=== PATIENT | male | born 1960 | race Caucasian/White ===

== ENCOUNTER 2019-11-20 10:56 | Emergency (ER) | payer BC, SELFPAY ==
[2019-11-20 10:57] VITALS: BP 159/100; PULSE 90; RESP 18; TEMP 36.4; O2SAT 96; BMI 31.6
--- NOTE | 2019-11-20 11:16 | EKG12_ITS ---
Test Reason : SYNCOPE Blood Pressure : / mmHG Vent. Rate : 069 BPM Atrial Rate : 069 BPM P-R Int : 142 ms QRS Dur : 094 ms QT Int : 376 ms P-R-T Axes : 054 068 061 degrees QTc Int : 402 ms Normal sinus rhythm Normal ECG Confirmed by LANCE GARCIA, AARON ([id number]), editor & co founder ROYAL MANN ([id number]) on 11/22/2019 9:15:31 AM Referred By: WAN Confirmed By:AARON LUCAS MD
--- NOTE | 2019-11-20 11:16 | RAD_ITS ---
STUDY: X-RAY CHEST REASON FOR EXAM: Male, 59 years old. Chest pain over past few days, worsening, a few episodes of passing out TECHNIQUE: Single AP portable view of the chest. COMPARISON: Comparison is made with prior study dated September 12, 2015. FINDINGS: EKG lead traversing. The lungs are clear and expanded. There is no demonstrated pleural abnormality. Normal size heart. Normal mediastinum and tim. Normal visualized pulmonary arteries. There is atherosclerotic tortuosity of the aortic arch and descending thoracic aorta. Normal visualized thoracic spine. Normal visualized ribs, clavicles, and shoulders. There is no demonstrated abnormality of the visualized soft tissue structures of the upper abdomen. RAD/Chest 1 View (Portable) IMPRESSION: No acute abnormality is seen. Electronically Signed: Kin Araiza, at 12:14 EDT , Service support ,
--- NOTE | 2019-11-20 11:41 | ED.DCSUM_ITS ---
- ER Visit Summary Date of Service: 11/20/19 Chief Complaint: Dizziness, syncope, and chest pain History of Present Illness: The patient is a 59 M who presents with dizziness, syncope, and chest pain that began yesterday. 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 Patient states he tried to stand up and his vision went blue and he fell to his knees. Patient states he has had intermittent chest pain that is sharp and squeezing. Patient states this is over the substernal area. Patient states that last for hours then resolves. Patient admits to some palpitations. Patient denies any nausea or vomiting. Patient denies any shortness of breath or cough. Physical Examination: Vital signs are stable except for a slightly elevated blood pressure of 159/100. Patient is afebrile. Patient is in no acute distr ess. Oral mucosa is pink and moist. Neck is supple. Trachea is midline. There is no JVD noted. Heart was regular rate and rhythm. Lungs are clear and equal bilaterally. Abdomen is soft. Bowel sounds are normal. There is no tenderness. There is no rebound or guarding noted. Skin is warm dry. Cranial nerves II through XII are intact. There are no focal motor or sensory deficits noted. Extremities are intact. There is no calf tenderness or edema. Test Results: EKG showed normal sinus rhythm with a rate of 69. There are no acute ST or T wave changes. CBC, comprehensive metabolic profile, lipase, PT with INR, and PTT were all within normal limits. Troponin was less than 0.015. D-dimer was slightly elevated at 0.54. Portable chest x-ray was obtained. Th ere is no acute cardiopulmonary process. CTA of the chest was obtained. There is no evidence of pulmonary embolism. This was interpreted by the radiologist and reviewed by myself. Orthostatic vital signs were within normal limits. Emergency Department Course and Treatment: Patient was advised of his findings. Patient is feeling better on reevaluation. Patient was advised that he is low risk for serious adverse event from his syncope according to the [place] syncope criteria. Patient was instructed to follow-up with his primary care physician in 3 to 5 days. Patient understood and was agreeable with the plan. All questions were answered. Disposition: Discharge home Impression: Syncope This note was generated with [employer] software. It may contain incorrect words, spelling, and punctuation that were not noted in review of the chart prior to signing ED Disposition - Plan for ED Patient: Disposition: Home or Assisted Living Diagnosis: Syncope Instructions: ED Near-Fainting Uncertain Cause Referrals: Kailash Dash MD [Primary Care Provider] - 3-5 Days
[2019-11-20 11:48] LABS: Absolute Lymphocyte Count 1.44 X10^3/uL (0.83-4.51); Absolute Neutrophil Count 5.7 X10^3/uL (2.0-7.7); Basophil# 0.04 X10^3/uL; Basophil% 0.5 % (0-1); Eosinophil# 0.02 X10^3/uL; Eosinophils% 0.3 % (0-5); Hematocrit 44.5 % (40-54); Hemoglobin 14.6 g/dL (13.0-16.5); Lymphocyte # 1.44 X10^3/ul (4.0); Lymphocyte % 18.3 % (19-41); Mean Corp Hgb Conc 32.8 g/dL (32-36); Mean Corpuscular Hgb 30.7 pg (27.0-32.0); Mean Corpuscular Volume 93.7 fL (80-94); Mean Platelet Vol. 10.1 fl (6.2-12.0); Monocyte% 8.9 % (0-10); NRBC Flagged by Analyzer 0 % (0-5); Neutrophil # 5.65 X10^3/uL (2.7-7.7); Neutrophil % 71.6 % (47-70); Platelet Count 176 K/mm3 (150-450); RBC Distribution Width CV 13.5 % (11.6-14.6); RBC Distribution Width SD 46.1 fl (35.1-43.9); Red Blood Count 4.75 M/mm3 (4.6-6.2); White Blood Count 7.9 K/mm3 (4.4-11.0)
[2019-11-20] MEDS: 0.9% Normal Saline 1,000 ML 1000 ML IV (11:48)
[2019-11-20 12:01] LABS: Prothrombin Time (Protime)PT. 12.9 SECONDS (11.7-14.9)
[2019-11-20 12:02] LABS: Partial Thromboplast Time 24.1 Seconds (24.1-36.2)
[2019-11-20 12:08] LABS: ALB/GLOB Ratio 1.2 RATIO (0.9-2.4); AST(SGOT) 17 U/L (15-37); Alanine Aminotransfer ALT/SGPT 26 U/L (16-61); Albumin, Serum 3.8 g/dL (3.2-5.0); Alkaline Phosphatase 87 U/L (45-117); Anion Gap 6 (5-15); BUN 15 mg/dL (7-18); Chloride 110 mmol/L (98-107); EST Glomerular Filtration Rate 82 mL/min (>60); Est Glom Filt Rate - Afr Amer 99 mL/min (>60); Estimated Creatinine Clearance 83.14 ml/min; Globulin 3.3 g/dL (2.2-4.2); Glucose 116 mg/dL (74-106); Lipase 195 U/L (73-393); Potassium 3.8 mmol/L (3.5-5.1); Protein, Total 7.1 g/dL (6.4-8.2); Sodium Level 141 mmol/L (136-145)
[2019-11-20 12:11] LABS: D-Dimer Quantitative (DVT/PE) 0.54 FEU/ug/m (0.27-0.49)
[2019-11-20 12:19] VITALS: BP 153/97; BP 154/103; BP 166/100; PULSE 68; PULSE 87; PULSE 88
--- NOTE | 2019-11-20 12:25 | CT_ITS ---
STUDY: CTA CHEST REASON FOR EXAM: Male, 59 years old. Elevated D-dimer, chest pain, dizzy, syncope. Hx hypertension. RADIATION DOSAGE (If Supplied By Facility): CTDIvol = ( 12.37 ) mGy, DLP = ( 534.59 ) mGycm TECHNIQUE: The examination was performed with the intravenous administration of 100mL Isovue 370. Post-processing of the angiographic images was performed, with multiplanar reformation and 3D reconstruction. Individualized dose optimization techniques were used for this CT. COMPARISON: None. FINDINGS: Normal enhancement of the main pulmonary artery and right and left pulmonary arteries. Normal enhancement of the bilateral peripheral pulmonary arteries. There is no demonstrated pulmonary embolism. Normal thoracic aorta and visualized great vessels. There is no demonstrated aortic dissection. Normal heart and pericardium. Normal mediastinum. Normal hilar regions. Normal visualized trachea and bronchi. The lungs are well expanded. Normal pulmonary parenchyma. Normal pleura. Normal chest wall structures. Normal osseous structures. There are 2 tiny nonobstructive calculi in the upper pole calyx of the left kidney. CT/CTA Chest W/WO Contrast IMPRESSION: Normal CTA chest examination, without a demonstrated pulmonary embolism or arterial dissection. Electronically Signed: Kin Araiza, at 13:04 EDT , Service support ,
[2019-11-20 14:19] VITALS: BP 149/102; PULSE 64; RESP 18; O2SAT 95
== END 2019-11-20 14:28 | disposition home or self-care (01) ==
PROVIDERS: Emergency Provider Emergency Medicine; PCP Family Medicine
DX: R55 Syncope and collapse (principal); I10 Essential (primary) hypertension; E78.00 Pure hypercholesterolemia, unspecified; F41.9 Anxiety disorder, unspecified; Z79.899 Other long term (current) drug therapy
CPT/HCPCS: 71045; 71275; 80053; 83690; 84484; 85025; 85379; 85610; 85730; 93005; 96360; 99284; Q9967

== ENCOUNTER → 2019-12-01 09:28 | Outpatient (CLI) | payer BC, SELFPAY ==
[2019-11-20 10:57] VITALS: BMI 31.6
--- NOTE | 2019-12-01 09:39 | STEWCON_ITS ---
Reason For Study: Chest Pain/ HTN Stress Results Protocol: Ramin Protocol WITH DEFINITY Maximum Predicted HR: 162 bpm Target HR: 138 bpm % Maximum Predicted HR: 93 % DurationHeart Rate Stage (mm:ss) (bpm) BP Comment Baseline 81 142/88No Chest Pain; 3 ML Diluted Definity Ramin Protocol Stage I 3:00 118 134/80No Chest Pain Ramin Protocol Stage II 3:00 137 126/84No Chest Pain Ramin Protocol Stage III 2:00 151 156/80No Chest Pain; Adam Leg Pain Recovery 100 146/82No Chest Pain Stress Duration: 8:00 mm:ss Maximum Stress HR: 151 bpm METS: 10 Baseline Echocardiogram Findings The estimated ejection fraction is 60 %. EF at peak exercise is 70-75%. Stress Echo Wall motion Data Resting WM Intermediate WM Stress WM Resting Wall Motion Wall Motion Stress No regional wall motion No regional wall motion abnormalities noted. abnormalities noted. EKG Data The baseline ECG displays normal sinus rhythm. The stress ECG displays normal ST segments. Symptoms with Stress The patient experinced no chest pain . Interpretation Summary The estimated ejection fraction is 60 %. Stress echo is negative for exercise induced CP or EKG or echocardiographic changes of ischemia. Ordering Physician: Lilliam Jordan Referring Physician: Nanda Nogueira M.D. Performed By: Angeli Goodman, RDCS, RVT
== END ==
PROVIDERS: PCP Family Medicine; Referring Provider Registered Nurse; Visit Provider Registered Nurse
DX: R07.9 Chest pain, unspecified (principal)
CPT/HCPCS: 93017; 93350; Q9957; A4216; C8928

== ENCOUNTER 2020-08-07 10:47 | Emergency (ER) | payer BC, SELFPAY ==
[2020-08-07 10:48] VITALS: BP 154/101; PULSE 98; RESP 17; TEMP 36.6; O2SAT 98; BMI 32.5
--- NOTE | 2020-08-07 11:02 | CT_ITS ---
STUDY: CT ABDOMEN AND PELVIS WITH CONTRAST REASON FOR EXAM: Male, 59 years old. Abd pain RADIATION DOSAGE (If Supplied By Facility): CTDIvol = ( 18.94 ) mGy, DLP = ( 1526.34 ) mGycm TECHNIQUE: Transaxial images were obtained from the dome of the diaphragm to the symphysis pubis without oral contrast. was administered. Sagittal and coronal images were reconstructed. Individualized dose optimization techniques were used for this CT. COMPARISON: None. FINDINGS: The visualized lung bases are unremarkable. The visualized portions of the heart are within normal limits. Normal liver. Normal gallbladder and extrahepatic biliary system. Normal spleen. Normal pancreas. Normal bilateral adrenal glands. Mild degree of right hydronephrosis and right hydroureter due to a 3 mm calculus at the right ureterovesical junction. There is an 8 mm cyst in the anterior aspect of the upper pole of the right kidney. There is a 4.3 cm cyst in the posterior lower pole of the right kidney. 3 mm nonobstructive calculus in the lower pole of the left kidney. Tiny calculus in the upper pole of the left kidney. Normal visualized stomach. Normal small intestine. There are multiple colonic diverticula consistent with diverticulosis. The appendix is visualized and appears normal. Normal abdominal aorta. Normal inferior vena cava. Normal retroperitoneum. Normal urinary bladder. Normal abdominal wall. There is straightening of the normal lumbar lordosis. CT/Abdomen/Pelvis W IV Cont ONLY IMPRESSION: 3 mm calculus at the right ureterovesical junction causing mild degree of the right hydronephrosis and right hydroureter. Electronically Signed: Kin Araiza MD at 12:16 EST , Service support ,
--- NOTE | 2020-08-07 11:03 | ED.VISSUMM ---
- ER Visit Summary Date of Service: 08/07/20 Chief Complaint: Abdominal pain History of Present Illness: The patient is a 59 M who presents with abdominal pain. Started 3 days ago. He describes a sharp pain in his lower abdomen that radiates down into the testicles. Nothing is better or worse. No nausea or vomiting. He denies diarrhea or constipation. He does have some dysuria and urinary hesitancy. He states he is having some pain in his rectum as well. He has no pain worsening with bowel movements. He denies any fevers. He has had an appendectomy in the past. Physical Examination: Vital signs reviewed. HEENT exam unremarkable. Heart is regular rate and rhythm without murmurs. Lungs are clear to auscultation. Abdomen is soft and nontender. Genitourinary exam reveals normal testicles and penis. He has no pain with palpation of the perineum. Extremities reveal no edema. Skin exam normal. Neurologic exam normal. Test Results: Laboratory studies are unremarkable save a glucose of 138. CT scan shows a 3 mm kidney stone at the right UVJ Emergency Department Course and Treatment: Patient given morphine and Zofran and felt improved. I believe the kidney stone is likely the cause of his pain. There are no other signs of infection. Patient was here with [place] at home. He will call his urologist for follow-up Treatment Plan: [] Disposition: Discharge Impression: Ureterolithiasis left This note was generated with [employer] dictation software. It may contain incorrect words, spelling, and punctuation that were not noted in review of the chart prior to signing ED Disposition - Plan for ED Patient: Disposition: Home or Assisted Living Instructions: ED Kidney Stone w/ Colic Prescriptions: Hydrocodone Bitart/Apap 5-325 [[place] 5MG-325MG] 1 tablet PO Q6H PRN PRN 3 Days #10 tablet PRN Reason: Pain Transmission Status: Received by [id number] Referrals: Kailash Dash MD [Primary Care Provider] -
[2020-08-07] MEDS: Morphine 4 MG/ML Syringe IV (11:22)
[2020-08-07] MEDS: Ondansetron 4 MG/2 ML Vial IV (11:22)
[2020-08-07 11:24] LABS: Absolute Lymphocyte Count 1.42 X10^3/uL (0.83-4.51); Absolute Neutrophil Count 5.5 X10^3/uL (2.0-7.7); Basophil# 0.04 X10^3/uL; Basophil% 0.5 % (0-1); Eosinophil# 0.03 X10^3/uL; Eosinophils% 0.4 % (0-5); Hemoglobin 14.8 g/dL (13.0-16.5); Lymphocyte # 1.42 X10^3/ul (4.0); Lymphocyte % 18.2 % (19-41); Mean Corp Hgb Conc 32.9 g/dL (32-36); Mean Corpuscular Hgb 30.8 pg (27.0-32.0); Mean Corpuscular Volume 93.8 fL (80-94); Mean Platelet Vol. 9.8 fl (6.2-12.0); Monocyte# 0.74 X10^3/uL; Monocyte% 9.5 % (0-10); NRBC Flagged by Analyzer 0 % (0-5); Neutrophil # 5.54 X10^3/uL (2.7-7.7); Neutrophil % 71.1 % (47-70); Platelet Count 200 K/mm3 (150-450); RBC Distribution Width CV 13.4 % (11.6-14.6); RBC Distribution Width SD 46.3 fl (35.1-43.9); White Blood Count 7.8 K/mm3 (4.4-11.0)
[2020-08-07 11:37] LABS: Bacteria 0 SEEN /hpf (None Seen); Mucous, Urine 0 SEEN /hpf (<or=2+); Squamous Epithelial Cells - UA 0 SEEN /hpf (0-5); White Blood Cells 0 SEEN /hpf (0-5)
[2020-08-07 11:40] LABS: ALB/GLOB Ratio 1.1 RATIO (0.9-2.4); AST(SGOT) 14 U/L (15-37); Alanine Aminotransfer ALT/SGPT 27 U/L (16-61); Albumin, Serum 3.8 g/dL (3.2-5.0); Alkaline Phosphatase 105 U/L (45-117); Anion Gap 6 (5-15); BUN 13 mg/dL (7-18); BUN/Creat Ratio 12.6 RATIO (10-20); Calcium,Total 9.1 mg/dL (8.5-10.1); Chloride 109 mmol/L (98-107); Creatinine, Serum 1.03 mg/dL (0.70-1.30); EST Glomerular Filtration Rate 79 mL/min (>60); Est Glom Filt Rate - Afr Amer 95 mL/min (>60); Estimated Creatinine Clearance 80.72 ml/min; Globulin 3.6 g/dL (2.2-4.2); Glucose 138 mg/dL (74-106); Potassium 3.5 mmol/L (3.5-5.1); Protein, Total 7.4 g/dL (6.4-8.2); Sodium Level 141 mmol/L (136-145)
[2020-08-07 11:42] LABS: Color, Urine Yellow (Yellow); Glucose, Dipstick 50 mg/dl (Normal); Ketone-Dipstick Negative (Negative); Leukocyte Esterase-Dipstick 25 /ul (Negative); Nitrite-Dipstick Negative (Negative); Occult Blood-Urine 50 /ul (Negative); Protein-Dipstick 15 mg/dl (Negative); Urine Bilirubin Dipstick Negative (Negative); Urine Clarity Clear (Clear); Urine Urobilinogen Normal (Normal)
[2020-08-07 11:52] LABS: Red Blood Cells-Urine 0-5 SEEN /hpf (0-5)
[2020-08-07 13:00] VITALS: BP 124/77; PULSE 79; RESP 16; O2SAT 98
== END 2020-08-07 13:00 | disposition home or self-care (01) ==
PROVIDERS: Emergency Provider Emergency Medicine; PCP Family Medicine
DX: N20.1 Calculus of ureter (principal)
CPT/HCPCS: 74177; 80053; 81001; 85025; 96374; 96375; 99283; A4216; J2405